=== PATIENT | male | born 1995 | race Caucasian/White ===

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

== ENCOUNTER 2017-03-10 10:02 | Inpatient (IN) | payer BC ==
[~2017-03-10] VITALS: Ht 162.6 cm; Wt 63.5 kg
[2017-03-10 11:09] LABS: MCH 30.7 PG (29.0-34.0); MCHC 34.1 G/DL (30.0-36.0); MCV 90.2 FL (86-99); PLATELET COUNT 257 K/uL (156-360); RBC DIS.WIDTH-CV 12.5 % (11.8-14.6); RBC DIS.WIDTH-SD 41.4 % (39-53); RED BLOOD COUNT 4.88 M/uL (4.00-5.50); WHITE BLOOD COUNT 12.1 K/uL (4.1-10.2)
[2017-03-10 11:17] LABS: ALBUMIN 4.2 g/dL (3.2-4.8); CHLORIDE 103 mEq/L (99-109); POTASSIUM 3.9 mEq/L (3.7-5.4); SODIUM 138 mEq/L (136-147)
[2017-03-10 11:17] LABS: APPEARANCE SL.HAZY ((CLEAR)); BILIRUBIN NEGATIVE; BLOOD NEGATIVE; COLOR YELLOW ((YELLOW)); GLUCOSE (STRIP) NEGATIVE; KETONES NEGATIVE; LEUKOCYTES NEGATIVE; NITRITE NEGATIVE; PROTEIN (STRIP) NEGATIVE; SPECIFIC GRAVITY 1.021 (1.000-1.030)
[2017-03-10 11:19] LABS: GLUCOSE 88 mg/dL (70-99); TOTAL PROTEIN 7.2 g/dL (6.4-8.3)
[2017-03-10 11:21] LABS: TOTAL BILIRUBIN 0.4 mg/dL (0.0-1.0)
[2017-03-10 11:22] LABS: SERUM ETHYL ALCOHOL < 10 mg/dL
[2017-03-10 11:23] LABS: ALKALINE PHOSPHATASE 75 IU/L (3-129); CREATININE 1.1 mg/dL (0.6-1.3); GFR ESTIMATE (CALCULATED) > 59 mL/min/ (58.99-99999)
[2017-03-10 11:23] LABS: BACTERIA RARE /HPF; EPITHELIAL CELLS NONE SEEN /HPF; MUCUS 1+ /LPF; RED BLOOD CELLS 0-5 /HPF (0-5); UCUL ADDED? NO; WHITE BLOOD CELLS 0-5 /HPF (0-5)
[2017-03-10 11:24] LABS: AST (GOT) 15 IU/L (2-34); UREA NITROGEN (BUN) 8 mg/dL (9-23)
[2017-03-10 11:26] LABS: ALT (GPT) 8 IU/L (3-49)
[2017-03-10 11:28] LABS: AMPHETAMINE NEGATIVE (500 ng/mL); BARBITURATES NEGATIVE (200 ng/mL); BENZODIAZEPINES NEGATIVE (150 ng/mL); BUPRENORPHINE NEGATIVE (10 ng/mL); COCAINE NEGATIVE (150 ng/mL); METHADONE NEGATIVE (200 ng/mL); METHAMPHETAMINE NEGATIVE (500 ng/mL); OPIATES (MORPHINE) NEGATIVE (100 ng/mL); OXYCODONE NEGATIVE (100 ng/mL); PHENCYCLIDINE NEGATIVE (25 ng/mL); PROPOXYPHENE NEGATIVE (300 ng/mL); THC CANNABINOIDS PRESUMPTIVE POSITIVE (50 ng/mL); TRICYCLIC ANTIDEPRESSANTS NEGATIVE (300 ng/mL)
[2017-03-10] MEDS ORDERED: MELATONIN5 M1 PO (15:21)
[2017-03-10 15:47] VITALS: BP 139/73
[2017-03-10 16:08] VITALS: BP 139/73
[2017-03-11 07:50] VITALS: BP 115/69
[2017-03-11 15:35] VITALS: BP 128/61
[2017-03-12 07:09] VITALS: BP 122/57
[2017-03-12] MEDS ORDERED: BUPROPION HCL100 M1 PO (10:35)
== END 2017-03-12 13:03 | disposition home or self-care (01) | DRG 881 ==
LOC: EME 10:02 → EDOF 14:48 → 1WEST 14:48 → ENRESERV 15:16 → 1WEST 15:36
PROVIDERS: Emergency Medicine
DX: F32.9 Major depressive disorder, single episode, unspecified (principal); R45.851 Suicidal ideations; F16.10 Hallucinogen abuse, uncomplicated; F90.9 Attention-deficit hyperactivity disorder, unspecified type; F14.10 Cocaine abuse, uncomplicated; F12.20 Cannabis dependence, uncomplicated; F17.200 Nicotine dependence, unspecified, uncomplicated; Z81.8 Family history of other mental and behavioral disorders
CPT/HCPCS: 80053; 81003; 84999; 85027; 90839; 97150 GO; 97165 GO; 99281; 99284; G0480; Q0177

== ENCOUNTER 2017-03-15 21:09 | Emergency (ER) | payer BC ==
[~2017-03-15] VITALS: Ht 162.6 cm; Wt 62.2 kg
[~2017-03-15 21:09] MED LIST: BUPROPION HCL100 M1 PO; MELATONIN5 M1 PO
[2017-03-15 21:37] LABS: HEMATOCRIT 45.4 % (38.0-50.0); HEMOGLOBIN 15.6 G/DL (12.5-16.6); MCH 30.4 PG (29.0-34.0); MCHC 34.4 G/DL (30.0-36.0); MCV 88.5 FL (86-99); PLATELET COUNT 273 K/uL (156-360); RBC DIS.WIDTH-CV 12.4 % (11.8-14.6); RBC DIS.WIDTH-SD 40.9 % (39-53); RED BLOOD COUNT 5.13 M/uL (4.00-5.50)
[2017-03-15 21:45] LABS: CHLORIDE 102 mEq/L (99-109); SODIUM 136 mEq/L (136-147)
[2017-03-15 21:46] LABS: GLUCOSE 117 mg/dL (70-99)
[2017-03-15 21:50] LABS: CREATININE 1.2 mg/dL (0.6-1.3); GFR ESTIMATE (CALCULATED) > 59 mL/min/ (58.99-99999); SERUM ETHYL ALCOHOL < 10 mg/dL
[2017-03-15 21:51] LABS: UREA NITROGEN (BUN) 9 mg/dL (9-23)
[2017-03-15 22:40] LABS: AMPHETAMINE NEGATIVE (500 ng/mL); BARBITURATES NEGATIVE (200 ng/mL); BENZODIAZEPINES NEGATIVE (150 ng/mL); BUPRENORPHINE NEGATIVE (10 ng/mL); COCAINE NEGATIVE (150 ng/mL); METHADONE NEGATIVE (200 ng/mL); METHAMPHETAMINE NEGATIVE (500 ng/mL); OPIATES (MORPHINE) NEGATIVE (100 ng/mL); OXYCODONE NEGATIVE (100 ng/mL); PHENCYCLIDINE NEGATIVE (25 ng/mL); PROPOXYPHENE NEGATIVE (300 ng/mL); THC CANNABINOIDS PRESUMPTIVE POSITIVE (50 ng/mL); TRICYCLIC ANTIDEPRESSANTS PRESUMPTIVE POSITIVE (300 ng/mL)
[2017-03-15 23:37] VITALS: BP 156/83
== END 2017-03-15 23:06 | disposition home or self-care (01) ==
LOC: EME 21:09
DX: F32.9 Major depressive disorder, single episode, unspecified (principal); T43.292A Poisoning by other antidepressants, intentional self-harm, initial encounter; R00.2 Palpitations; R44.3 Hallucinations, unspecified; F16.10 Hallucinogen abuse, uncomplicated; F12.10 Cannabis abuse, uncomplicated; F17.200 Nicotine dependence, unspecified, uncomplicated
CPT/HCPCS: 80048; 84999; 85027; 99281; 99284; G0480

== ENCOUNTER 2017-03-17 22:30 | Observation (INO) | payer BC ==
[~2017-03-17] VITALS: Ht 162.6 cm; Wt 65.4 kg
[2017-03-17 23:33] LABS: BASOPHIL (%) 0.4 % (0-1); EOSINOPHIL COUNT 0.1 K/uL (0-0.3); HEMATOCRIT 43.3 % (38.0-50.0); HEMOGLOBIN 14.8 G/DL (12.5-16.6); IMMATURE GRANULOCYTE (%) 0.2 % (0.0-0.7); LYMPHOCYTE (%) 28.7 % (15-42); LYMPHOCYTE COUNT 2.4 K/uL (1.0-2.8); MCH 30.1 PG (29.0-34.0); MCHC 34.2 G/DL (30.0-36.0); MCV 88.2 FL (86-99); MONOCYTE (%) 10.6 % (3-12); MONOCYTE COUNT 0.9 K/uL (0-0.8); NEUTROPHIL (%) 59.1 % (45-76); NEUTROPHIL COUNT 4.9 K/uL (1.8-6.4); PLATELET COUNT 261 K/uL (156-360); RBC DIS.WIDTH-CV 12.3 % (11.8-14.6); RBC DIS.WIDTH-SD 39.9 % (39-53); RED BLOOD COUNT 4.91 M/uL (4.00-5.50); WHITE BLOOD COUNT 8.3 K/uL (4.1-10.2)
[2017-03-17 23:42] LABS: ALBUMIN 4.6 g/dL (3.2-4.8); CHLORIDE 105 mEq/L (99-109); POTASSIUM 3.4 mEq/L (3.7-5.4); SODIUM 137 mEq/L (136-147)
[2017-03-17 23:44] LABS: GLUCOSE 102 mg/dL (70-99)
[2017-03-17 23:45] LABS: TOTAL PROTEIN 7.3 g/dL (6.4-8.3)
[2017-03-17 23:46] LABS: TOTAL BILIRUBIN 0.4 mg/dL (0.0-1.0)
[2017-03-17 23:47] LABS: SERUM ETHYL ALCOHOL < 10 mg/dL
[2017-03-17 23:48] LABS: CREATININE 1.3 mg/dL (0.6-1.3); GFR ESTIMATE (CALCULATED) > 59 mL/min/ (58.99-99999)
[2017-03-17 23:49] LABS: ALKALINE PHOSPHATASE 77 IU/L (3-129)
[2017-03-17 23:50] LABS: AST (GOT) 16 IU/L (2-34); UREA NITROGEN (BUN) 14 mg/dL (9-23)
[2017-03-17 23:52] LABS: ACETAMINOPHEN (TYLENOL) < 10 mcg/mL (10-30); ALT (GPT) 9 IU/L (3-49); SALICYLATE < 5.0 MG/DL (15-30)
[2017-03-18 06:11] VITALS: BP 137/69
[2017-03-18 07:15] VITALS: BP 130/69
[2017-03-18 12:10] VITALS: BP 136/73
[2017-03-18 15:28] VITALS: BP 113/60
[2017-03-18 20:48] VITALS: BP 118/57
[2017-03-18 23:46] VITALS: BP 107/58
[2017-03-19 04:06] LABS: BENZODIAZEPINES, URINE SCREEN POSITIVE (200 ng/mL)
[2017-03-19 04:07] VITALS: BP 106/57
[2017-03-19 07:55] VITALS: BP 125/57
[2017-03-19 10:45] VITALS: BP 136/62
== END 2017-03-19 15:19 ==
LOC: EME 22:30 → 5WEST 03-18 03:46 → EDOF 03-18 03:46 → ENRESERV 03-18 03:47 → 5WEST 03-18 06:07
PROVIDERS: Emergency Medicine; Psychiatry & Neurology Psychiatry
DX: T43.292A Poisoning by other antidepressants, intentional self-harm, initial encounter (principal); R44.2 Other hallucinations; F32.9 Major depressive disorder, single episode, unspecified; F12.20 Cannabis dependence, uncomplicated; F16.90 Hallucinogen use, unspecified, uncomplicated; E87.6 Hypokalemia; R45.1 Restlessness and agitation; F17.200 Nicotine dependence, unspecified, uncomplicated; Z78.1 Physical restraint status; Z81.8 Family history of other mental and behavioral disorders; Z91.5 Personal history of self-harm
CPT/HCPCS: 80053; 80306 90; 85025; 93005; 99281; 99285; G0378; G0480; J1650; J2060; J2250; J2405; J7030

== ENCOUNTER 2017-03-19 11:44 | Inpatient (IN) | payer BC ==
[~2017-03-19] VITALS: Ht 162.6 cm; Wt 65.4 kg
[2017-03-19 15:55] VITALS: BP 137/75
[2017-03-19 16:32] VITALS: BP 137/75
[2017-03-20 07:23] VITALS: BP 114/59
[2017-03-20 16:03] VITALS: BP 122/69
[2017-03-21 07:57] VITALS: BP 110/49
[2017-03-21 16:41] VITALS: BP 126/77
[2017-03-22 07:45] VITALS: BP 111/53
[2017-03-22] MEDS ORDERED: TENEX1 MG PO (08:46)
== END 2017-03-22 11:25 | disposition home or self-care (01) | DRG 882 ==
LOC: 1WEST 11:44
DX: F43.23 Adjustment disorder with mixed anxiety and depressed mood (principal); F12.20 Cannabis dependence, uncomplicated; F16.90 Hallucinogen use, unspecified, uncomplicated; F90.9 Attention-deficit hyperactivity disorder, unspecified type
CPT/HCPCS: 97150 GO; 97165 GO